=== PATIENT | male | born 1965 | race Caucasian/White ===

== ENCOUNTER 2018-01-04 23:09 | Emergency (ER) | payer BC, MEDICAID ==
--- NOTE | 2018-01-07 10:59 | ER ---
DATE SEEN: 01/04/2018 HISTORY OF PRESENT ILLNESS: This 52-year-old man is attended by his . He presents to the ED. He was seen approximately at 2340 hours. The patient was noted to have a 472 glucose, and on his meter at home as greater than 600. The [id number] glucose here was 472. The patient wanted to go to [facility], but was more concerned that because his sugars were so elevated, they decided to come here, otherwise, they would have went to [facility]. Today, he had an infusion of Remicade, Benadryl, prednisone, and Tylenol at [facility] for his rheumatoid arthritis. Other diseases include ischemic heart disease in 05/2016, CABG 4- vessels in 10/07/2016 with stent. Ischemic heart disease, dyslipidemia, depression, muscle aches, seasonal allergies, and insulin-dependent diabetes. Atorvastatin, fungal rash, hypertension, and he takes an eye drop, Pantanol, I am not sure what this is for. He was started on Levemir on Sunday, 4 days ago. The patient used to take Lantus in the past. His insulin "was just changed today" per the nurse and he has not started it. When I started asking questions, his answered for him, and she was very angry. I asked her why she was angry, and she said because she did not want to come to this hospital, and she then and verbalized her displeasure with me-even though I had not been in the room for more than 3 minutes. At that point, I had to answer a telephone call from the radiologist about another patient. As I came back, she still was angry. When I asked her again why she was so angry, she said it because I was unkind to my nurse. I had firmly requested my nurse not to take a medicine bottle out of the sharp needle container. Then, she says to me, "you're not a very nice doctor, that was not a nice thing to do." I told her I did that to help protect the nurse, and let the conversation drop. I completed the examination of Ritchie without asking more questions or pursuing any more history. PHYSICAL EXAMINATION: HEENT: PERRLA intact. Pharynx without abnormality. Mouth, mucosa is moist. NECK: Supple. No thyromegaly. No tracheal tug. LUNGS: Clear without rales, rhonchi, or wheezes. HEART: S1 and S2. No murmur. CABG scar was noted. ABDOMEN: Nontender. No guarding. No abdominal discomfort. UPPER EXTREMITIES: Lymphedema. PLAN AND RECOMMENDATIONS: After examing the edema of his lower extremities, I said "he must have congestive heart failure". At this point, his got more angry, and she said "I just told you he had heart surgery." At this point, I did not say anything more. I told them that I think it would be appropriate for him to start his short- acting insulin. I explained the use of NovoLog and aspartate insulin, and we would have to recheck the sugar in 1 hour. At this point, rolled his eyes and she got even more angry, and noted to me that they were not interested in staying very long in the emergency room, they "had to get home." I left the room and told them I would order insulin. If they did not want insulin, they have to let me know. I went out to order the insulin, and as I was ordering the insulin, the came out and shut the door and said "we are going to [facility]" angrily and left. She signed AMA. ASSESSMENT: 1. Diabetes. 2. Rheumatoid arthritis. 3. Elevation in glucose secondary to steroid infusion at [facility] today. 4. Depression. 5. Dyslipidemia. 6. Hypertension. 7. Eye disease. The use of Pantolol glaucoma. 8. Left Against Medical Advice. /[id number] ESTIVEN/SHAMEKA IVEY
--- NOTE | 2018-01-07 10:59 | ER ---
DATE SEEN: 01/04/2018 ADDENDUM: Regarding his 's anger. When she presented to the registration desk, she told the transit clerk that she did not want to come here, but his glucose is elevated. He did not want to come here, but she told him that because his glucose is elevated, he needed to come here. She then told me the same, and was angry with coming here, did not want to come here, and if she had her druthers, she would not come to this hospital, but she was worried about her . She related this to the fact that he had a "bad" experience in the hospital years ago that really made him upset. When I asked her to elaborate, she did not want to talk about it.The anger seemed to stem from the fact that she insisted he come to the hospital ans he did not want to come, and due to an episode several years ago. I surmise from the discussion that there was a significant conjugal disagreement between his and Ritchie. She became the spokesperson and he sat on the gurney and smiled, while she angrily talked to me. The patient arrived at 2309 hours. I was notified of the patient at 2330 hours and the patient was seen at 2345 hours. The patient left AMA at 0018 hours. His signed AMA. /[id number] ESTIVEN/SHAMEKA IVEY
== END 2018-01-05 00:18 | disposition left against medical advice (07) ==
LOC: FB.ED 23:09
DX: E11.65 Type 2 diabetes mellitus with hyperglycemia (principal); M06.9 Rheumatoid arthritis, unspecified; F32.9 Major depressive disorder, single episode, unspecified; I25.810 Atherosclerosis of coronary artery bypass graft(s) without angina pectoris; I10 Essential (primary) hypertension; H57.8 Other specified disorders of eye and adnexa; Z79.899 Other long term (current) drug therapy; Z53.21 Procedure and treatment not carried out due to patient leaving prior to being seen by health care provider; E78.5 Hyperlipidemia, unspecified
CPT/HCPCS: 36415; 80053; 81001; 82962; 85025; 99283

== ENCOUNTER 2019-02-17 10:09 | Day surgery (SDC) | payer MEDICAID ==
[2019-02-17] MEDS ORDERED: Lidocaine 2% 100 MG/5 ML Syringe IVPUSH ONE (10:10)
[2019-02-17] MEDS ORDERED: Propofol 1,000 MG/100 ML SDV IV ONE (10:10)
[2019-02-17] MEDS ORDERED: fentaNYL 100 MCG/2 ML SDV IV ONE (10:10)
[2019-02-17] MEDS ORDERED: Lactated Ringers 1,000 ML IV ONE (10:10)
[2019-02-17] MEDS ORDERED: Ondansetron 4 MG/2 ML SDV IVPUSH ONE (10:10)
[2019-02-17] MEDS ORDERED: Midazolam 1 MG/ML 2 ML SDV IV ONE (10:10)
[2019-02-17] MEDS ORDERED: Lactated Ringers 1,000 ML IV SCH (10:15)
[2019-02-17] MEDS ORDERED: Sodium Chloride 0.9% 10 ML Syringe FLUSH PRN (10:15)
--- NOTE | 2019-02-17 11:54 | PCM.PN ---
- General Info Date of Service: 02/17/19 - Review of Systems Systems Review Comment:: 53 y/o male here for placement of permanent venous access device. The proposed left cephalic vein site is confirmed with the patient. I again discussed the proposed procedure with the patient and his . Expectations and post op instructions reviewed. Risks and possible complications again discussed with the patient and he agrees to proceed. - Patient Data Vitals - Most Recent: Last Vital Signs Temp 97.5 F 02/17/19 10:44 Pulse 60 02/17/19 10:44 Resp 15 02/17/19 10:44 BP 168/61 H 02/17/19 10:44 Pulse Ox 98 02/17/19 10:44 Weight - Most Recent: 269 lb Lab Results Last 24 Hours: Laboratory Results - last 24 hr 02/17/19 Range/Units 10:48 POC Glucose 225 H D (80-116) mg/dL Med Orders - Current: Current Medications Lactated Ringer's (Ringers, Lactated) 1,000 mls @ 125 mls/hr IV ASDIRECTED VESTA Last Admin: 02/17/19 10:45 Dose: 125 mls/hr Sodium Chloride (Saline Flush) 10 ml FLUSH ASDIRECTED PRN PRN Reason: Keep Vein Open - Problem List Review Problem List Initiated/Reviewed/Updated: Yes - My Orders Last 24 Hours: My Active Orders 02/17/19 10:15 Patient Status [ADT] Routine Blood Glucose Check, Bedside [RC] ONETIME Patient to Empty Bladder [RC] ASDIRECTED RT Incentive Spirometry [RC] ASDIRECTED Verify Patient Consent Obtain [RC] ASDIRECTED Lactated Ringers [Ringers, Lactated] 1,000 ml IV ASDIRECTED Sodium Chloride 0.9% [Saline Flush] 10 ml FLUSH ASDIRECTED PRN Peripheral IV Insertion Adult [OM.PC] Routine 02/17/19 Breakfast Nothing Per Oral Diet [DIET] - Assessment Assessment:: Poor peripheral venous access - Plan Plan:: Placement of permanent venous access device.
[2019-02-17] MEDS ORDERED: Bupivacaine 0.5% 30 ML SDV INJECT ONE (12:14)
[2019-02-17] MEDS ORDERED: Lidocaine 1% 20 ML MDV INJECT ONE (12:14)
--- NOTE | 2019-02-17 13:56 | PCM.OPNOTE ---
- General Post-Op/Procedure Note Date of Surgery/Procedure: 02/17/19 Operative Procedure(s): Placement of permanent venous access device Findings: Small veins in left delto-pectoral groove. Satisfactory catheter placement by Fluoroscopy and easy ability to flush and irrigate the catheter. Pre Op Diagnosis: Poor peripheral venous access Post-Op Diagnosis: Same Anesthesia Technique: Local, MAC Primary Surgeon: Sincere Beatty Pathology: none EBL in mLs: 25 Complications: None Condition: Good
[2019-02-17] MEDS ORDERED: Acetaminophen/HYDROcodone 325-5 MG Tab PO ONE (13:57)
--- NOTE | 2019-02-17 15:01 | OR ---
DATE OF OPERATION: 02/17/2019 SURGEON: Sincere Beatty MD PREOPERATIVE DIAGNOSIS: Poor peripheral venous access. POSTOPERATIVE DIAGNOSIS: Poor peripheral venous access. OPERATION PERFORMED: Placement of permanent venous access device. INDICATIONS FOR SURGERY: This 53-year-old male requires monthly intravenous medication administration and at least bimonthly blood draws. It is anticipated that he will need these treatments indefinitely and has poor peripheral venous access. He comes to have a permanent venous access device placed. FINDINGS: The patient has small caliber veins in the deltopectoral groove. The catheter once placed appeared to irrigate and aspirate easily and was in good position by C-arm fluoroscopy. PROCEDURE IN DETAIL: The patient was taken to the operating room. He was given intravenous sedation and with him in the supine position, the left chest was sterilely prepped and draped. After local infiltration of xylocaine and Marcaine mix in the left infraclavicular area, a linear incision was made. Dissection proceeded down onto the underlying muscle. Dissection identified the deltopectoral groove, which is opened and explored. With deep exploration, small veins coursing through the deltopectoral groove were identified. The largest of these was isolated by encircling it with silk proximally and distally. The Bard port implantable port device is then selected and flushed with heparin. A small venotomy is made in the controlled vein in the deltopectoral groove and after persistent manipulation, the 8-[place] polyurethane single-lumen catheter was able to be inserted into this vein and advanced easily toward the chest. Initial evaluation by C-arm fluoroscopy showed that the catheter tip was curled laterally, but by withdrawing the catheter and further manipulation, the catheter did advance down into the superior vena cava. Once it had been positioned at approximately the level of the atrium, the catheter was secured to the vein by tying the silk sutures. A subcutaneous pocket is made medial and inferior to the incision and the surface of the underlying muscle exposed. The receptacle for the device is irrigated with heparin. The implanted catheter is cut to the appropriate length and the catheter was then attached to the port with the enclosed locking device. It appeared to be securely adhered in position and irrigated and aspirated easily. The port is then placed into the subcutaneous pocket, which had been created and it was secured in 4 quadrants to the underlying fascia of the pectoralis major muscle with 0 Prolene sutures. The wound was irrigated with water. Inspection showed no sign of bleeding or any other complication. Re-evaluation with the C-arm fluoroscopy showed the catheter to continued to be in good position. The wound was then closed by approximating the subcutaneous tissue with interrupted 3-0 Vicryl and the skin with running 4-0 Vicryl subcuticular stitch. The port is then accessed percutaneously and noted to aspirate blood and irrigated with heparin easily. Steri-Strips and benzoin were applied, followed by antibiotic ointment and sterile dressing. The patient was then taken from the operating room in satisfactory condition. ESTIMATED BLOOD LOSS: 25 mL. COMPLICATIONS: None. PROGNOSIS: Fair. /[id number] CELIA/SHAMEKA IVEY
== END 2019-02-17 14:30 | disposition home or self-care (01) ==
LOC: FB.SDS 10:09
PROVIDERS: ATTEND Surgery
DX: I87.8 Other specified disorders of veins (principal); I25.10 Atherosclerotic heart disease of native coronary artery without angina pectoris; I25.2 Old myocardial infarction; I12.9 Hypertensive chronic kidney disease with stage 1 through stage 4 chronic kidney disease, or unspecified chronic kidney disease; E11.22 Type 2 diabetes mellitus with diabetic chronic kidney disease; N18.2 Chronic kidney disease, stage 2 (mild); E11.40 Type 2 diabetes mellitus with diabetic neuropathy, unspecified; E78.00 Pure hypercholesterolemia, unspecified; E66.9 Obesity, unspecified; F41.1 Generalized anxiety disorder; F17.220 Nicotine dependence, chewing tobacco, uncomplicated; K21.9 Gastro-esophageal reflux disease without esophagitis; G47.33 Obstructive sleep apnea (adult) (pediatric); L40.50 Arthropathic psoriasis, unspecified; L40.9 Psoriasis, unspecified; Z68.41 Body mass index [BMI] 40.0-44.9, adult; Z79.4 Long term (current) use of insulin; Z79.82 Long term (current) use of aspirin; Z79.02 Long term (current) use of antithrombotics/antiplatelets; Z79.899 Other long term (current) drug therapy
CPT/HCPCS: 36561; 76000; 82962; 94150; A9270; J1642; J2001; J2250; J2405; J2704; J3010; J3490; J7120

== ENCOUNTER 2021-07-30 17:33 | Emergency (ER) | payer MEDICARE ==
[2021-07-30] MEDS ORDERED: Sodium Chloride 0.9% 10 ML Syringe FLUSH PRN (17:57)
[2021-07-30 18:11] LABS: BASE EXCESS VENOUS,POC -3 mmol/L (-2 - 3+); PCO2 VENOUS,POC 59 mmHg (41-51); PH VENOUS,POC 7.24 pH Units (7.32-7.43)
[2021-07-30] MEDS ORDERED: methylPREDNISolone Sodium Succinate 125 MG/2 ML SDV IVPUSH ONE (18:44)
[2021-07-30] MEDS ORDERED: Albuterol/Ipratropium 3.0-0.5 MG/3 ML Neb Soln NEB ONE (18:44)
[2021-07-30] MEDS ORDERED: Albuterol 0.083% 2.5 MG/3 ML Neb Soln NEB ONE ×2 (18:44→20:38)
[2021-07-30] MEDS ORDERED: Ondansetron 4 MG/2 ML SDV IVPUSH ONE (18:57)
[2021-07-30] MEDS ORDERED: cefTRIAXone 2 GM Vial IVPUSH ONE (20:38)
[2021-07-30] MEDS ORDERED: Azithromycin 500 MG in Sodium Chloride 0.9% 250 ML IV ONE (20:41)
[2021-07-30 20:47] LABS: BASE EXCESS VENOUS,POC -2 mmol/L (-2 - 3+); PCO2 VENOUS,POC 51 mmHg (41-51); PH VENOUS,POC 7.31 pH Units (7.32-7.43)
[2021-07-30] MEDS ORDERED: Acetaminophen 500 MG Tab PO ONE (21:26)
[2021-07-30] MEDS ORDERED: Sodium Chloride 0.9% 1,000 ML IV ONE (21:26)
== END 2021-07-30 23:45 ==
LOC: FB.ED 17:33
DX: A41.9 Sepsis, unspecified organism (principal); I21.4 Non-ST elevation (NSTEMI) myocardial infarction; J18.9 Pneumonia, unspecified organism; J96.02 Acute respiratory failure with hypercapnia; I25.119 Atherosclerotic heart disease of native coronary artery with unspecified angina pectoris; I10 Essential (primary) hypertension; E11.9 Type 2 diabetes mellitus without complications; E66.9 Obesity, unspecified; M19.90 Unspecified osteoarthritis, unspecified site; Z79.899 Other long term (current) drug therapy; Z79.82 Long term (current) use of aspirin; Z68.28 Body mass index [BMI] 28.0-28.9, adult; Z20.822 Contact with and (suspected) exposure to COVID-19
CPT/HCPCS: 36415; 71045; 80053; 83605; 83735; 83880; 84484; 85025; 85379; 86140; 87040; 87077; 87186; 93005; 94640; 99285; A9270; J0456; J0696; J2405; J2930; J7030; J7050; U0002; J7620-GY